=== PATIENT | female | born 1975 | race Caucasian/White ===

== ENCOUNTER → 2016-09-24 | Outpatient (CLI) | payer BC, OTHER ==
[~2016-09-24] MED LIST: AMLO5CAP2 PO; CALC500C3 PO; CALC500T83 PO; LEVO175T PO; MRC50 PO; MULT-506 PO
--- NOTE | 2016-09-25 13:55 | MAMMOGRAPHY REPORT ---
BILATERAL DIGITAL SCREENING MAMMOGRAM TOMOSYNTHESIS WITH CAD: 09/24/2016 CLINICAL HISTORY: Routine screening. Patient has no complaints. TECHNIQUE: Breast tomosynthesis in addition to standard 2D mammography was performed. Current study was also evaluated with a Computer Aided Detection (CAD) system. COMPARISON: Comparison is made to exams dated: 09/19/2015 mammogram, 09/15/2014 mammogram, 03/30/2014 ultrasound, 03/30/2014 mammogram, 09/27/2013 ultrasound biopsy, and 09/16/2013 ultrasound - [facility]. BREAST COMPOSITION: There are scattered areas of fibroglandular density in both breasts. FINDINGS: An asymmetry in the lateral posterior left breast is less prominent comparing to the 2014 mammograms. There is a stable metallic biopsy marker in the upper outer posterior left breast. No suspicious mass, architectural distortion or cluster of suspicious microcalcifications is seen. IMPRESSION: ACR BI-RADS CATEGORY 1: NEGATIVE There is no mammographic evidence of malignancy. A 1 year screening mammogram is recommended. The p atient will receive written notification of the results. Approximately 10% of breast cancers are not detected with mammography. A negative mammographic repor t should not delay biopsy if a clinically suggestive mass is present. Fanta Fonseca M.D. ay/:09/24/2016 18:06:48 Dope Worker: Dara Jules, [facility] letter sent: Normal 1/2 BI-RADS Code: ACR BI-RADS Category 1: Negative
== END | disposition home or self-care (01) ==
LOC: C.MAMM 07:34
PROVIDERS: ATTEND Obstetrics & Gynecology
DX: Z12.31 Encounter for screening mammogram for malignant neoplasm of breast (principal)

== ENCOUNTER 2017-02-26 08:38 | Day surgery (SDC) | payer BC ==
[2017-02-26] VITALS (11 sets, daily range): BP systolic 115–144; BP diastolic 64–88; PULSE 54–68; TEMP 36.8–37.4; O2SAT 98–100; Ht 162.6 cm; Wt 114.5 kg
[~2017-02-26] VITALS: Ht 162.6 cm; Wt 114.5 kg
--- NOTE | 2017-02-26 10:55 | DIAGNOSTIC IMAGING REPORT ---
LUMBAR PUNCTURE DIAGNOSTIC CLINICAL HISTORY: 41 years-old Female presenting with possible pseudotumor cerebra I, swollen optic nerve, change in vision. COMPARISON: 04/15/2016. PROCEDURE: The procedure, risks and benefits were discussed with the patient including the risk of spinal headache, bleeding and infection. The patient agreed to the procedure and informed written consent was obtained. The procedure was performed by Dr. Gill following a timeout. The L3-4 interspinous space was targeted. Skin overlying the space was prepped and draped in the usual aseptic fashion and local anesthesia was achieved with 1% lidocaine. Under intermittent fluoroscopic guidance, a 20-gauge x 3 1/2 in. Sprotte needle was inserted into the thecal sac. Opening pressure was obtained and prone positioning, which measured 31 cmH2O. A total of 10 mL of clear, colorless cerebral spinal fluid was obtained and spread amongst 4 vials. The patient tolerated the procedure well. There were no immediate complications. The specimens were sent to the laboratory at the request of the referring physician. Reference range: Normal opening pressure 6-25 cmH2O (95% reference interval for lateral decubitus positioning). Fluoroscopy dosage: Not available. mGy. Fluoroscopy time: 0.6 minutes. Number of fluoroscopic spot images: 0. IMPRESSION: 1. Successful fluoroscopic guided lumbar puncture with removal of 10 mL of clear, colorless cerebral spinal fluid. No immediate complications. 2. Elevated opening pressure. Electronically signed by: Facundo Gill M.D. 02/26/2017 10:54 AM Dictated Date/Time: 02/26/2017 10:53 AM
[2017-02-26 11:08] LABS: CSF APPEARANCE CLEAR; CSF COLOR COLORLESS; CSF XANTHOCHROMIC NO XANTHOCHROMIA
[2017-02-26 11:18] LABS: CSF TOTAL PROTEIN 43.7 mg/dl (15.0-45.0)
[2017-02-26] MEDS ORDERED: ACETAMINOPHEN 500 MG TAB PO PRN (11:45)
--- NOTE | 2017-02-26 11:45 | Discharge Instructions ---
Discharge Instructions Procedure Procedure Date: Feb 26, 2017. Reason for visit: Pseudotumor Cerebri W/ Opening Pressure. Discharge Discharge Date: Feb 26, 2017. Discharge Diagnosis: Elevated opening pressure could be consistent with pseudotumor cerebri. Successful fluoroscopic guided lumbar puncture with opening pressure for concern for pseudotumor cerebri. Medications Restart Stopped Medication(s): Resume home meds. Instructions Activity Recommendations: No limitations Return to School/Work: no limitations Recommended Home Diet: No Limitations Provider Instructions: Lumbar Puncture performed with Fluoroscopic guidance [L3-4 ] level with [22G ] needle. No complications. Allergies Coded Allergies: Ibuprofen (Verified Allergy, Mild, RASH AND HIVES, 02/26/17) Janice Martin Recommendations: Call your doctor if: * Temperature above 101 degrees * Pain not relieved by pain medicine ordered * There is increased drainage or redness from any incision * You have any unanswered questions or concerns. Your Doctors Instructions noted above were prepared by provider Facundo Gill. Patient Signature Section: Patient Instructions Signature Page Tati Rehman Patient (or Guardian) Signature/Date: I have read and understand the instructions given to me by my caregivers. Caregiver/RN/Doctor Signature/Date: The above-named patient and/or guardian has received patient instructions on this date. + Original Patient Signature Page (only) stays with chart. Please make copy for patient.
== END 2017-02-26 14:35 | disposition home or self-care (01) ==
LOC: C.ACU 08:38
PROVIDERS: ATTEND Psychiatry & Neurology Neurology
DX: H47.099 Other disorders of optic nerve, not elsewhere classified, unspecified eye (principal); G93.2 Benign intracranial hypertension

== ENCOUNTER → 2017-05-21 | Outpatient (CLI) | payer BC ==
[2017-05-21 10:53] LABS: BASO % 0.3 %; BASO ABS # 0.02 K/uL (0-0.2); COMPLETE YES; EOS % 1.1 %; IG% 0.3 %; LYMPH % 14.8 %; LYMPH ABS # 1.09 K/uL (1.2-3.4); MEAN CELL VOLUME 90.9 fL (80-100); MEAN CORPUSCULAR HEMOGLOBIN 30.1 pg (25-34); MEAN CORPUSCULAR HGB CONC 33.1 g/dl (32-36); MEAN PLATELET VOLUME 10.2 fL (7.4-10.4); MONO % 6.3 %; NEUT % 77.2 %; PLATELET COUNT 296 K/uL (130-400); RED BLOOD COUNT 4.29 M/uL (4.2-5.4); WHITE BLOOD COUNT 7.36 K/uL (4.8-10.8)
[2017-05-21 11:18] LABS: BLOOD UREA NITROGEN 17 mg/dl (7-18); CALCIUM 8.5 mg/dl (8.5-10.1); CARBON DIOXIDE 21 mmol/L (21-32); CHLORIDE 109 mmol/L (98-107); CHOLESTEROL 168 mg/dl (0-200); CREATININE 0.89 mg/dl (0.60-1.20); GLUCOSE 93 mg/dl (70-99); POTASSIUM 3.7 mmol/L (3.5-5.1); SODIUM 137 mmol/L (136-145); TRIGLYCERIDES 55 mg/dl (0-150); VERY LOW DENSITY LIPOPROT CALC 11 mg/dl
[2017-05-21 11:26] LABS: ALB/GLOB RATIO 1.1 (0.9-2); ALKALINE PHOSPHATASE 72 U/L (45-117); ALT/SGPT 19 U/L (12-78); AST/SGOT 10 U/L (15-37); CHOLESTEROL/HDL RATIO 3.1; HDL CHOLESTEROL 54 mg/dl; LDL CHOLESTEROL CALCULATED 103 mg/dl
== END | disposition home or self-care (01) ==
LOC: C.LABBC 07:34
PROVIDERS: ATTEND Internal Medicine
DX: C73 Malignant neoplasm of thyroid gland (principal)

== ENCOUNTER 2017-08-30 06:27 | Emergency (ER) | payer BC ==
[~2017-08-30] VITALS: Ht 162.6 cm; Wt 116.5 kg
[2017-08-30 06:30] VITALS: Ht 162.6 cm; Wt 116.5 kg
[2017-08-30] MEDS ORDERED: PRED20TA PO (07:04)
--- NOTE | 2017-08-30 07:05 | EMERGENCY ROOM VISIT NOTE ---
History Report prepared by Trice: João Schmidt Under the Supervision of: Dr. Say Sanchez D.O. First contact with patient: 06:53 Chief Complaint: ALLERGIC REACTION Stated Complaint: HIVES AND WELTS History of Present Illness The patient is a 42 year old female who presents to the Emergency Room with complaints of an improving itchy rash over her arms, back, and abdomen that began prior to arrival. She states she initially had red welts across her body. She states her only allergies are to ibuprofen. She denies SOB. She denies taking any Benadryl. She had a blue crab salad at [facility] yesterday but denies a shellfish allergy. She denies any new detergents. She denies exposure to anything unusual. She denies a history of diabetes. Source of History: patient Onset: [employer] Position: arm (bilateral), abdomen, back Symptom Intensity: pain rated as 0/10 Quality: other (itching) Timing: other (improving) Associated Symptoms: + rash, No SOB Review of Systems See HPI for pertinent positives & negatives. A total of 10 systems reviewed and were otherwise negative. Past Medical & Surgical Medical Problems: (1) Abnormal laboratory test result (2) Crohn's Disease, Unspecified, Without Complications (3) Hyperlipidemia Nec/Nos (4) Hypertension Nos (5) Iron Deficiency Anemia, Unspecified (6) Malign Neopl Thyroid Surgical Problems: (1) History of partial hysterectomy (2) History of subtotal thyroidectomy Family History FH: breast cancer FH: diabetes mellitus FH: hypertension FH: ovarian cancer Social History Smoking Status: Never Smoker Alcohol Use: occasionally Marital Status: Occupation Status: employed Current/Historical Medications Scheduled Acetazolamide (Acetazolamide), 250 MG PO BID Amlodipine/Benazepril (Lotrel 5MG/20MG), 1 CAP PO QAM Calcium (Calcium), 1,000 MG PO QPM Levothyroxine Sodium (Synthroid), 175 MCG PO 6XWK Levothyroxine Sodium (Synthroid), 1.5 TAB PO SUNDAYS Mercaptopurine (Mercaptopurine), 25 MG PO QAM Multivitamin (Multivitamin), 1 TAB PO QPM Prednisone (Prednisone), 2 TAB PO DAILY Scheduled PRN Calcium Carbonate (Tums), 1 TAB PO PRN PRN for Indigestion Allergies Coded Allergies: Ibuprofen (Verified Allergy, Mild, RASH AND HIVES, 9/20/17) Physical Exam Vital Signs Date Time Temp Pulse Resp B/P (MAP) Pulse Ox O2 Delivery O2 Flow Rate FiO2 08/30/17 06:30 36.9 83 18 146/92 97 Room Air Physical Exam CONSTITUTIONAL/VITAL SIGNS: Reviewed / noted above. GENERAL: Non-toxic in appearance. INTEGUMENTARY: Diffuse erythema to the mid and low back. Minimal erythema to the abdomen. Minimal erythema to the bilateral dorsal wrists. Warm, dry, and [place]. HEAD: Normocephalic. EYES: without scleral icterus or trauma. ENT/OROPHARYNX: clear and moist. LYMPHADENOPATHY/NECK: Is supple without lymphadenopathy or meningismus. RESPIRATORY: Lungs clear and equal. CARDIOVASCULAR: Regular rate and rhythm. GI/ABDOMEN: Soft and nontender. No organomegaly or pulsatile mass. No rebound or guarding. Normal bowel sounds. EXTREMITIES: Warm and well perfused. BACK: No CVA tenderness. NEUROLOGICAL: Intact without focal deficits. PSYCHIATRIC: normal affect. MUSCULOSKELETAL: Normally developed with good muscle tone. Medical Decision & Procedures Medications Administered Medications (Trade) Dose Ordered Sig/Marcin Route Start Time Stop Time Status Last Admin Dose Admin Diphenhydramine HCl (Benadryl Cap) 50 mg NOW ONCE PO 08/30/17 07:00 08/30/17 07:01 DC 08/30/17 07:10 50 MG Prednisone (PredniSONE TAB) 40 mg NOW STAT PO 08/30/17 07:00 08/30/17 07:01 DC 08/30/17 07:10 40 MG ED Course 0653: Previous medical records were reviewed. The patient was evaluated in room B2. A complete history and physical examination was performed. 0700: Benadryl Cap, 50 mg PO; PredniSONE Tab, 50 mg PO. 0715: On reevaluation, the patient is doing well. I discussed the results and findings with the patient. She verbalized agreement of the treatment plan. She was discharged home. Medical Decision Differential diagnosis: Etiologies such as allergic reaction, anaphylaxis, urticaria, Shankar-Cristopher syndrome, toxic epidermal necrolysis, erythema multiforme, cellulitis, as well as others were entertained. This is a 42-year-old female who presents to the ED with a chief complaint of possible allergic reaction. The patient presents stating that she developed itching and redness in her thorax and wrists this morning. She states that she ate some shellfish last night but has not had an allergy to this in the past. She denies any shortness of breath or swelling of her tongue or throat. The patient's vital signs are normal. Her physical exam reveals some mild redness to the bilateral wrists. She also has some mild erythema to the abdomen and more erythema to the mid low back region. These are not raised welts but are erythematous and blanching. She states they are pruritic. The patient's lungs are clear and her oropharynx is clear. She states that her symptoms seem to have improved somewhat since this morning. She did not have Benadryl on hand. The patient after evaluation was treated with Benadryl p.o. as well as p.o. prednisone. She will be discharged on these. She is felt to be stable for discharge. Medication Reconcilliation Current Medication List: was personally reviewed by me Blood Pressure Screening Patient's blood pressure: Elevated blood pressure Blood pressure disposition: Elevated BP felt to be situational Impression Primary Impression: Urticaria Scribe Attestation The scribe's documentation has been prepared under my direction and personally reviewed by me in its entirety. I confirm that the note above accurately reflects all work, treatment, procedures, and medical decision making performed by me. Departure Information Dispostion Home / Self-Care Prescriptions Prednisone (Prednisone) 20 Mg Tab 2 TAB PO DAILY for 4 Days, #8 TAB Prov: Say Sanchez D.O. 08/30/17 Referrals Facundo Bro M.D. (PCP) Patient Instructions My [facility] Additional Instructions Take Benadryl 25-50 mg every 6 hours as needed for itching and rash. Prednisone as prescribed. Follow-up with your doctor for further care and evaluation in 3-4 days if symptoms persist. Return to the emergency department for worsening or new symptoms or any concerns. You have been examined and treated today on an emergency basis only. This is not a substitute for, or an effort to provide, complete comprehensive medical care. It is impossible to recognize and treat all injuries or illnesses in a single emergency department visit. It is therefore important that you follow up closely with your doctor. Call as soon as possible for an appointment.
[2017-08-30] MEDS ORDERED: ACET-1325 PO (07:06)
[2017-08-30 07:48] VITALS: BP 152/105; PULSE 64; TEMP 36.9; O2SAT 100
== END 2017-08-30 07:35 | disposition home or self-care (01) ==
LOC: C.EDB 06:28
DX: L50.9 Urticaria, unspecified (principal); K50.90 Crohn's disease, unspecified, without complications; E78.5 Hyperlipidemia, unspecified; I10 Essential (primary) hypertension; Z85.850 Personal history of malignant neoplasm of thyroid; Z90.710 Acquired absence of both cervix and uterus; E89.0 Postprocedural hypothyroidism; Z83.3 Family history of diabetes mellitus; Z82.49 Family history of ischemic heart disease and other diseases of the circulatory system; Z80.41 Family history of malignant neoplasm of ovary; Z79.899 Other long term (current) drug therapy; Z88.6 Allergy status to analgesic agent

== ENCOUNTER → 2017-10-02 | Outpatient (CLI) | payer BC ==
[~2017-10-02] MED LIST changes: +ACET-1325 PO
--- NOTE | 2017-10-02 14:45 | MAMMOGRAPHY REPORT ---
BILATERAL DIGITAL SCREENING MAMMOGRAM TOMOSYNTHESIS WITH CAD: 10/02/2017 CLINICAL HISTORY: Routine screening. TECHNIQUE: Breast tomosynthesis in addition to standard 2D mammography was performed. Current study was also evaluated with a Computer Aided Detection (CAD) system. COMPARISON: Comparison is made to exams dated: 09/24/2016 mammogram, 09/19/2015 mammogram, 09/15/2014 ma mmogram, 09/13/2013 mammogram, 08/27/2012 mammogram, and 09/16/2013 mammogram - [facility]. BREAST COMPOSITION: There are scattered areas of fibroglandular density in both breasts. FINDINGS: No suspicious masses, calcifications, or areas of architectural distortion are noted in ei ther breast. There has been no significant interval change compared to prior exams. A biopsy clip is again noted within the left upper outer quadrant. Asymmetry in the left lateral breast on the cc vi ew is stable compared to prior exams including the 2012 exam. IMPRESSION: ACR BI-RADS CATEGORY 2: BENIGN There is no mammographic evidence of malignancy. A 1 year screening mammogram is recommended. The pa tient will receive written notification of the results. Approximately 10% of breast cancers are not detected with mammography. A negative mammographic report should not delay biopsy if a clinically suggestive mass is present. Jennifer Mendez M.D. /:10/02/2017 07:48:48 Cota: Ernesto PAREDES(R)(M), [facility] letter sent: Normal 1/2 BI-RADS Code: ACR BI-RADS Category 2: Benign
== END | disposition home or self-care (01) ==
LOC: C.MAMM 07:28
PROVIDERS: ATTEND Obstetrics & Gynecology
DX: Z12.31 Encounter for screening mammogram for malignant neoplasm of breast (principal)